=== PATIENT | male | born 1930 | race Caucasian/White ===

== ENCOUNTER 2018-08-15 15:12 | Inpatient (IN) | payer OTHER ==
[~2018-08-15] VITALS: Ht 172.7 cm; Wt 88.5 kg
[2018-08-15 15:12] VITALS: BP 108/63
[~2018-08-15 15:12] MED LIST: ACCUPRIL PO; ALPRAZOLAM 0.0.25 M1 PO; ALPRAZOLAM 0.0.25 MG PO; AMARYL4 MG PO; AMBIEN 10 MG TA10 MG PO; ANTARA130 MG PO; ANTARA43 MG PO; ASPIRIN PO; ASPIRIN81 M2 PO; ATIVAN0.5 MG PO; BYSTOLIC 5 MG5 M1 PO; EXELON1 EAC1 TRANSDERM; FERREX 150150 MG PO; FUROSEMIDE 20 M20 M1 PO; GLUCOPHAGE1000 MG PO; GLUCOPHAGE500 MG PO; JANUVIA25 MG PO; JANUVIA50 MG PO; KEFLEX500 MG PO; LANTUS SUBQ; LEVOTHROID25 MCG PO; LEVOTHYROXIN0.125 M1 PO; LEVOTHYROXINE0.2 M1; LIPITOR 10 MG10 M1 PO; LIPITOR PO; LIVALO4 MG PO; LOPRESSOR100 MG PO; METFORMIN HCL500 MG PO; NAMENDA 5 MG TAB5 M1 PO; NOVOLOG100 UNIT/1 SUBQ; PROTONIX 20 MG20 M1 PO; QUINAPRIL 20 MG20 MG PO; QUINU10 PD PO; SYNTHROID75 MCG PO; TRAMADOL 50 MG50 MG PO; VALIUM5 MG PO; XANAX 0.25 MG0.25 MG PO; ZANTAC 150MG T150 M1 PO; ZETIA; ZYPREXA 10 MG T10 MG IM
[2018-08-15 17:14] LABS: HEMATOCRIT 39.4 % (42.0-52.0); HEMOGLOBIN 13.1 gm/dL (14.0-18.0); MCHC 33.3 g/dL (28.0-37.0); MCV 96.1 fL (80.0-100.0); PLATELET COUNT 304 thou/uL (150-400); RBC 4.09 mil/uL (4.50-6.00); RDW 13.4 % (10.5-14.5); WBC 11.8 thou/uL (4.0-11.0)
[2018-08-15 17:16] LABS: URINE BILIRUBIN NEGATIVE (Negative); URINE BLOOD NEGATIVE (Negative); URINE CLARITY CLEAR; URINE COLOR YELLOW; URINE GLUCOSE-RANDOM* NEGATIVE (Negative); URINE KETONES NEGATIVE (Negative); URINE LEUKOCYTES-REFLEX NEGATIVE (Negative); URINE NITRITE-REFLEX NEGATIVE (Negative); URINE PROTEIN (DIPSTICK) TRACE (Negative); URINE SPECIFIC GRAVITY >= 1.030 (1.005-1.035); URINE UROBILINOGEN 0.2 E.U./dl (0.2-1.0)
[2018-08-15 17:26] LABS: CALCIUM 9.7 mg/dL (8.5-10.1); CREATININE 2.4 mg/dL (0.7-1.3); POTASSIUM 4.1 mmol/L (3.5-5.1)
[2018-08-15 17:51] LABS: ABSOLUTE NEUTROPHILS 7.9 thou/uL (1.4-8.2)
[2018-08-15 18:07] VITALS: BP 108/63
[2018-08-15] MEDS ORDERED: TOUJEO SOL300 UNIT/1 SUBQ (18:11)
[2018-08-15] MEDS ORDERED: MEMANTINE HCL E28 MG PO (18:12)
[2018-08-15] MEDS ORDERED: QUINAPRIL HCL10 MG PO (18:13)
[2018-08-15] MEDS ORDERED: DITROPAN XL10 MG PO (18:13)
[2018-08-15] MEDS ORDERED: SYNTHROID137 MC1 PO (18:14)
[2018-08-15] MEDS ORDERED: LORAZEPAM 2MG TA2 M1 PO (18:14)
[2018-08-15] MEDS ORDERED: QUETIAPINE FUM200 MG PO (18:15)
[2018-08-15] MEDS ORDERED: NORCO 5-325 TA1 EACH PO (18:15)
[2018-08-15] MEDS ORDERED: ESCITALOPRAM OX10 MG PO (18:15)
[2018-08-15 19:31] VITALS: BP 110/64
--- NOTE | 2018-08-16 02:27 | NUR ---
PT ALERT TO SELF. VSS. ASSESSMENT COMPLETED. ADMISSION COMPLETED WITH FAMILY AT BEDSIDE. SITTER IN ROOM. PT IS CONFUSED AND IMPULSIVE BUT COOPERATIVE AND FOLLOWS DIRECTIONS. IV DRESSING C/D/I, NO SIGNS OF INFILTRATION. PT ABLE TO VERBALIZE SOME PAIN IN L KNEE. PT CALL LIGTH AND PERSONAL BELONIGNS WITHIN REACH. WILL CONTINUE POC UNTIL EOS.
[2018-08-16 06:17] LABS: HEMATOCRIT 36.1 % (42.0-52.0); HEMOGLOBIN 11.8 gm/dL (14.0-18.0); MCH 31.6 pg (26.0-34.0); MCHC 32.7 g/dL (28.0-37.0); MCV 96.5 fL (80.0-100.0); PLATELET COUNT 235 thou/uL (150-400); RBC 3.74 mil/uL (4.50-6.00); RDW 13.6 % (10.5-14.5); WBC 7.9 thou/uL (4.0-11.0)
[2018-08-16 06:20] VITALS: BP 108/60
[2018-08-16 06:36] LABS: CREATININE 2.1 mg/dL (0.7-1.3); MAGNESIUM 2.1 mg/dL (1.8-2.4); POTASSIUM 3.6 mmol/L (3.5-5.1)
[2018-08-16 07:30] VITALS: BP 120/50
[2018-08-16 08:29] LABS: ABSOLUTE NEUTROPHILS 3.5 thou/uL (1.4-8.2); ANISOCYTOSIS 1+
[2018-08-16 08:31] LABS: POLYCHROMASIA OCCASIONAL
--- NOTE | 2018-08-16 16:03 | NUR ---
DAUGHTER AT BEDSIDE STATES PT IS MORE DROWSY THAN NORMAL. PT USUALLY TAKES LORAZEPAM 2 MG PRN AND NOT DAILY, PHYSICIAN NOTIFIED. NEW MED CHANGE ORDERED.
[2018-08-16 17:30] VITALS: BP 140/76
--- NOTE | 2018-08-16 19:44 | NUR ---
ASSUMED CARE OF PT AT 0700. ASSESSMENT COMPLETED. ONLY ORIENTED TO SELF, HX DEMENTIA. SITTER AT BEDSIDE. PT SLEPT MOST OF THE DAY. CONFUSED WHEN AWAKE. C/O LEFT KNEE PAIN POST FALL, PAIN MEDS GIVEN ORDERED. FAMILY AT BEDSIDE. IV LEAKING, IV TEAM CONTACTED. AWAITING NEW IV ACCESS. END OF SHIFT.
[2018-08-16 22:40] VITALS: BP 121/54
[2018-08-17 04:44] VITALS: BP 146/62
--- NOTE | 2018-08-17 05:19 | NUR ---
ASSUMED PT CARE 1900. PT ALERT TO SELF. SITTER IN ROOM AT BEDSIDE. PT IMPULSIVE. IV DRESSING C/D/I, NO SIGNS OF INFILTRATION. VSS. FALL PRECAUTIONS IN PLACE. WILL CONTINUE POC UNTIL EOS.
[2018-08-17 07:35] VITALS: BP 129/68
--- NOTE | 2018-08-17 10:00 | NUR ---
ASSESMENT COMPLETED. VSS. CONFUSED. NO NOTED SOA. DENIES PAIN. RESTLESS AT TIMES. PT RESTING IN BED AT THIS TIME. SITTER AT BEDSIDE. WILL CONT. TO MONITOR.
[2018-08-17 14:50] LABS: CALCIUM 9.4 mg/dL (8.5-10.1); CREATININE 1.7 mg/dL (0.7-1.3); POTASSIUM 4.5 mmol/L (3.5-5.1)
[2018-08-17 16:39] VITALS: BP 145/76
--- NOTE | 2018-08-18 03:53 | NUR ---
ASSUMED PT CARE 0. PT ALERT TO SELF. VSS. SITTER AT BEDSIDE. INCREASED ANXIETY AND AGITATION THROUGHOUT EVENING. PT HAS BEEN RESTLESS AND IMPULSIVE, CAN BE REDIRECTED. REASSSESSMENT COMPLETED. IV DRESSING C/D/I, NO SIGNS OF INFILTRATION. CONTINUING TO MONITOR. WILL CONTINUE POC UNTIL EOS.
[2018-08-18 04:47] VITALS: BP 167/84
[2018-08-18 04:59] LABS: HEMATOCRIT 34.2 % (42.0-52.0); HEMOGLOBIN 11.5 gm/dL (14.0-18.0); MCH 32.3 pg (26.0-34.0); MCHC 33.5 g/dL (28.0-37.0); MCV 96.3 fL (80.0-100.0); RBC 3.55 mil/uL (4.50-6.00); WBC 5.6 thou/uL (4.0-11.0)
[2018-08-18 05:06] LABS: CALCIUM 9.3 mg/dL (8.5-10.1); CREATININE 1.6 mg/dL (0.7-1.3); POTASSIUM 3.7 mmol/L (3.5-5.1)
[2018-08-18 06:59] VITALS: BP 150/83
--- NOTE | 2018-08-18 10:42 | NUR ---
PT ALERT TO SELF AND VERY CONFUSED, CLIMBING OUT OF BED TRYING TO AMBULATE, UNSTEADY GAIT. PT IS AGITATED AND ANXIOUS. 1:1 MONITORING AT THIS TIME. PT DOES HAVE SWELLING TO L KNEE. ORTHO CONSULT ORDERED PER .
--- NOTE | 2018-08-18 12:42 | NUR ---
INITIAL ASSESSMENT: Pt evaluated for d/c planning needs. Reviewed chart and spoke with nurse, pt and pt's daughter. Pt has history of dementia. Pt lives in house with spouse and daughter. Pt was independent with ADL's prior to admission to the hospital. Pt uses cane or walker for ambulation. Pt's daughter was arranging home health from previous hospitalization at [facility]. Plan is for pt to return home with family on d/c from hospital. Will remain available to assist as needed.
[2018-08-18] MEDS ORDERED: MIRALAX17 GM PO (16:16)
[2018-08-18 17:52] VITALS: BP 142/93
--- NOTE | 2018-08-18 18:32 | NUR ---
ORDER RECEIEVED FOR ORTHO CONSULT TO HAVE INJECTION IN L KNEE. ORTHO CONSULTED PT REFUSED INJECTION. FAMILY REQUESTED ORTHO TO COME BACK AND INJECT CORTERSONE. JASMYN BROWN FOLDING MACHINE OPERATOR CALLED AGAIN AND SHE STATED HE WOULD NEED TO COME TO THE OFFICE. FAMILY THEN ATATED THEY COULD NOT TAKE PT HOME TODAY CAUSE PT WAS SEDATED. PT WAS GIVEN ATIVAN THIS AM D/T AGITATION, PT HAD NOT SLEPT AT ALL THROUGHOUT NOC. ALSO FAMILY STATED HE HAS NOT HAD A BM SINCE HE HAS BEEN HERE. DR. DEL CASTILLO NOTIFIED, ORDER RECEIVED TO CONSULT SW FOR POSSIBLE PLACEMENT, MIRALAX WILL BE GIVEN PRN.
--- NOTE | 2018-08-18 19:39 | NUR ---
PT HAD DIRRHEA WHILE FAMILY WAS TAKING PT FOR A RIDE IN THE HALLWAY OUTSIDE THE UNIT NEAR THE ELEVATOR, ALSO HAD LARGE FORMED STOOL IN HIS BED, MIRLAX WAS HELD AT THAT TIME.
--- NOTE | 2018-08-19 07:13 | NUR ---
large solid BMS mixed with diarrhea beginning of shift. incontinent b/b. patient noncompliant, confused, anxious. no response to ativan, seroquel given. became combative, trying to strike staff, clamping hands on my arms. heron britton BUSINESS INTERN made aware of hostility. given order for bilateral wrist restraints. i gave him IM Zyprexa, no response. laid in bed quietly without sleeping. became anxious, continuing to yell and try to strike/ touch staff while in restraints.
[2018-08-19 08:18] LABS: HEMATOCRIT 37.7 % (42.0-52.0); HEMOGLOBIN 12.7 gm/dL (14.0-18.0); MCHC 33.8 g/dL (28.0-37.0); MCV 94.8 fL (80.0-100.0); RBC 3.98 mil/uL (4.50-6.00); RDW 13.1 % (10.5-14.5)
[2018-08-19 08:26] LABS: CREATININE 1.6 mg/dL (0.7-1.3); POTASSIUM 3.6 mmol/L (3.5-5.1)
[2018-08-19 08:30] VITALS: BP 148/91
[2018-08-19] MEDS ORDERED: VOLTAREN GEL 1100 G2 TOP (09:00)
[2018-08-19 10:18] VITALS: BP 148/91
--- NOTE | 2018-08-19 11:06 | NUR ---
Assumed pt care at 7am.Pt in and out of bed with assist.Assessment completed. vss.Pt more relaxed and cooperative with care today.Am meds given with breakfast and well tolerated.Family in room with pt.Dr Quispe here,dc order noted.Sitter in room till throughout this am.Dc summary compiled and reviewed with pt and family.At 1030,pt [place] with family accompanied by marine steam fitter helper.
== END 2018-08-19 10:30 | disposition home or self-care (01) | DRG 682 ==
LOC: ER 15:12 → EROBS 17:43 → 4E 17:43
PROVIDERS: Internal Medicine; Nurse Practitioner; Student in an Organized Health Care Education/Training Program; ADMIT Hospitalist
DX: N17.0 Acute kidney failure with tubular necrosis (principal); G93.41 Metabolic encephalopathy; E43 Unspecified severe protein-calorie malnutrition; I25.10 Atherosclerotic heart disease of native coronary artery without angina pectoris; Z66 Do not resuscitate; E11.51 Type 2 diabetes mellitus with diabetic peripheral angiopathy without gangrene; N18.9 Chronic kidney disease, unspecified; E11.22 Type 2 diabetes mellitus with diabetic chronic kidney disease; F03.90 Unspecified dementia, unspecified severity, without behavioral disturbance, psychotic disturbance, mood disturbance, and anxiety; I95.9 Hypotension, unspecified; E86.0 Dehydration; I12.9 Hypertensive chronic kidney disease with stage 1 through stage 4 chronic kidney disease, or unspecified chronic kidney disease; E78.5 Hyperlipidemia, unspecified; M79.605 Pain in left leg; W18.30XA Fall on same level, unspecified, initial encounter; Y93.89 Activity, other specified; Z68.29 Body mass index [BMI] 29.0-29.9, adult; Y92.89 Other specified places as the place of occurrence of the external cause; Z95.5 Presence of coronary angioplasty implant and graft; Y99.8 Other external cause status; Z87.440 Personal history of urinary (tract) infections; Z87.891 Personal history of nicotine dependence; Z86.14 Personal history of Methicillin resistant Staphylococcus aureus infection; Z79.4 Long term (current) use of insulin; Z79.899 Other long term (current) drug therapy
CPT/HCPCS: 10084